=== PATIENT | female | born 1960 | race Caucasian/White ===

== ENCOUNTER 2017-12-08 11:23 | Inpatient (IN) | payer MEDICAID ==
[~2017-12-08] VITALS: Ht 152.4 cm; Wt 49.9 kg
--- NOTE | ~2017-12-08 | CN ---
PATIENT NAME:PAVEL GREER MEDICAL RECORD: [id number] : 56 LOCATION:[facility] ADMIT DATE: 12/08/17 ACCOUNT: [id number] CONSULTING PHYSICIAN: MOLLY BALLARD MD REFERRING PHYSICIAN: FIONA PRICE MD DATE OF CONSULTATION: 12/09/2017 CONSULT REQUESTING PHYSICIAN: Fiona Price MD REASON FOR CONSULTATION: Pneumonia, acute exacerbation of chronic obstructive pulmonary disease. HISTORY OF PRESENT ILLNESS: Ms. Greer is a 57-year-old female who is sick for the last 4-5 days. She was coughing. She was wheezing. She has shortness of breath with mild exertion. She has fever and chills. The patient came into the ER yesterday and admitted for pneumonia, COPD exacerbation. REVIEW OF SYSTEMS: Mainly in the history of present illness. PAST MEDICAL HISTORY: 1. COPD. 2. Gastroesophageal reflux disease. PAST SURGICAL HISTORY: Hysterectomy. ALLERGIES: No known drug allergy. MEDICATIONS: iHydroRun is reviewed. PERSONAL AND SOCIAL HISTORY: The patient is a current everyday smoker, 2 packs a day. She is a nondrinker. FAMILY HISTORY: Noncontributory. PHYSICAL EXAMINATION: GENERAL: Now, the patient is lying comfortably in bed. She is not in acute distress. VITAL SIGNS: The blood pressure is 136/62, pulse is 118, respiration 20, temperature 98.2, and SpO2 is 92% on 2 liters nasal cannula. HEENT: Conjunctivae are pink. Sclerae are not icteric. NECK: Supple, no JVD. CHEST: The chest excursion is minimal on both prolonged expiration with wheezing. HEART: Rhythm regular, normal sound, no murmur. ABDOMEN: Soft, bowel sounds present. No hepatosplenomegaly. RECTAL: Deferred. EXTREMITIES: No cyanosis, no clubbing, no pedal edema. SKIN: Warm, normal turgor. CENTRAL NERVOUS SYSTEM: The patient is awake and alert. There is no obvious cranial nerve abnormality. The gait was not tested. CHEST RADIOGRAPH: There is infiltrate in the right lower lobe compared to the chest radiograph on the and is a bit improving. LABORATORY DATA: CBC: WBC 10.4, hemoglobin 12.6, hematocrit 38.3, the platelet CONSULT REPORT [id number] PAVEL GREER count is 137. Chemistry: Sodium 139, potassium 3.2, BUN 22, creatinine was 0.9. ABG: The pH is 7.39, pCO2 of 41.8, the pO2 of 76, bicarbonate is 25.7. IMPRESSION: 1. Acute hypoxic respiratory failure. 2. Acute exacerbation of chronic obstructive pulmonary disease. 3. Pneumonia, right lower lobe, consistent with a community-acquired pneumonia. 4. Tobacco dependence syndrome. 5. Hypokalemia. 6. Gastroesophageal reflux disease. RECOMMENDATION: 1. Continue supplemental oxygen. 2. Albuterol and ipratropium nebulizer. Start Brovana, budesonide nebulizer, methylprednisolone IV, Singulair 10 mg a day, Mucinex DM. Follow up labs and chest radiograph. Check alpha 1 level. GERD precaution given. The patient was counseled to quit smoking. Dr. Price, thank you for involving me in the care of Ms. Greer. TRANSINT:[id number] Voice Confirmation ID: [id number] DOCUMENT ID: [id number] MOLLY BALLARD MD at 1806 CC: FIONA PRICE MD [id number] DICTATION DATE: 12/09/17 1523 ENVIRONMENTAL FIELD TEAM MEMBER: 12/09/17 1555 [facility] IN 12/12/17 [id number] [place] [address]
[2017-12-08 12:12] LABS: BASOPHILS 0.2 % (0-2); EOSINOPHILS 0 % (0-7); HEMATOCRIT 38.3 % (36.0-48.0); HEMOGLOBIN 12.6 g/dL (12-16); IMMATURE GRANULOCYTES 0.2 % (0-5); MCH 29.9 pg (26.0-34.0); MCHC 32.9 g/dL (31.0-37.0); MEAN PLATELET VOLUME 11.6 fL (7.4-10.4); MONOCYTES 6.3 % (2-11); NEUTROPHILS 80.3 % (40-80); RBC 4.21 10x6/uL (4.00-5.40); RDW 13.9 % (11.5-14.5); WBC 10.4 10x3/uL (4.8-10.8)
[2017-12-08 12:16] LABS: PLATELET COUNT 137 10x3/uL (130-400)
[2017-12-08 12:20] LABS: PROTIME 12.8 SECONDS (11.6-15.0)
[2017-12-08 12:21] LABS: APTT 29.6 SECONDS (22.8-39.4)
[2017-12-08 12:22] LABS: D-DIMER-QUANTITATIVE 0.59 ug/mLFEU (0.20-0.54)
[2017-12-08 12:27] LABS: ALBUMIN 3.1 g/dL (3.4-5.0); ALKALINE PHOSPHATASE 55 U/L (46-116); ALT (SGPT) 18 U/L (10-68); BILIRUBIN - TOTAL 0.21 mg/dL (0.2-1.3); CALC OSMOLALITY 281 mosm/kg (275-300); CALCIUM 8.4 mg/dL (8.5-10.1); CARBON DIOXIDE 26.5 mmol/L (21.0-32.0); CHLORIDE - SERUM 100 mmol/L (98-107); CREATININE - SERUM 0.9 mg/dL (0.6-1.3); GLUCOSE 113 mg/dL (74-106); POTASSIUM - SERUM 3.2 mmol/L (3.5-5.1); PROTEIN - SERUM 6.5 g/dL (6.4-8.2); SODIUM 139 mmol/L (136-145); UREA NITROGEN 22 mg/dL (7-18); eGFR NON AFRICAN AMERICAN 68 mL/min (90-120)
[2017-12-08 12:39] LABS: CKMB 0.3 U/L (0.0-3.6); CREATINE KINASE 63 UL (21-215)
[2017-12-08 12:41] LABS: TROPONIN-I < 0.017 ng/mL (0.000-0.060)
[2017-12-08 22:17] VITALS: BP 111/59
[2017-12-08] MEDS ORDERED: BACLOFEN10 MG PO (22:41)
[2017-12-08] MEDS ORDERED: IBUPROFEN800 MG PO (22:42)
[2017-12-08] MEDS ORDERED: PROAIR HFA8.5 GM INH ×2 (22:43→22:44)
[2017-12-08] MEDS ORDERED: ADVAIR 250/501 DISK INH (22:44)
[2017-12-08] MEDS ORDERED: IPRAT-ALBUT 0.5-3 ML UPD (22:45)
[2017-12-08] MEDS ORDERED: BUSPAR 15 MG TA15 MG PO (22:46)
[2017-12-08] MEDS ORDERED: NEURONTIN600 MG PO (22:47)
[2017-12-08] MEDS ORDERED: FUROSEMIDE20 MG PO (22:47)
[2017-12-08] MEDS ORDERED: TYLENOL W/CODEI1 TAB PO (22:49)
[2017-12-09 00:08] VITALS: BP 111/59; BMI 21.5
[2017-12-09 03:56] VITALS: BP 131/61
[2017-12-09 06:17] LABS: BASOPHILS 0 % (0-2); EOSINOPHILS 0 % (0-7); HEMATOCRIT 35.3 % (36.0-48.0); HEMOGLOBIN 11.5 g/dL (12-16); IMMATURE GRANULOCYTES 0.1 % (0-5); LYMPHOCYTES 9.3 % (15-50); MCH 29.6 pg (26.0-34.0); MCHC 32.6 g/dL (31.0-37.0); MCV 90.7 fL (80.0-100.0); MEAN PLATELET VOLUME 11.6 fL (7.4-10.4); MONOCYTES 2.7 % (2-11); NEUTROPHILS 87.9 % (40-80); PLATELET COUNT 145 10x3/uL (130-400); RBC 3.89 10x6/uL (4.00-5.40); RDW 13.9 % (11.5-14.5)
[2017-12-09 06:36] LABS: WBC 7.1 10x3/uL (4.8-10.8)
[2017-12-09 07:01] LABS: ALBUMIN 2.6 g/dL (3.4-5.0); ALKALINE PHOSPHATASE 51 U/L (46-116); ALT (SGPT) 17 U/L (10-68); CALC OSMOLALITY 295 mosm/kg (275-300); CALCIUM 8.4 mg/dL (8.5-10.1); CARBON DIOXIDE 23.8 mmol/L (21.0-32.0); CHLORIDE - SERUM 106 mmol/L (98-107); CREATININE - SERUM 0.8 mg/dL (0.6-1.3); POTASSIUM - SERUM 3.1 mmol/L (3.5-5.1); SODIUM 142 mmol/L (136-145); UREA NITROGEN 27 mg/dL (7-18); eGFR NON AFRICAN AMERICAN 78 mL/min (90-120)
[2017-12-09 07:12] LABS: GLUCOSE 244 mg/dL (74-106)
[2017-12-09 10:03] VITALS: BP 133/66
[2017-12-09 13:35] VITALS: BP 136/62
[2017-12-09 14:18] VITALS: Ht 152.4 cm; Wt 49.9 kg
[2017-12-09 16:54] VITALS: BP 137/57
[2017-12-09 21:38] VITALS: BP 159/67
[2017-12-10 03:50] VITALS: BP 147/71
[2017-12-10 05:44] LABS: BASOPHILS 0.1 % (0-2); EOSINOPHILS 0 % (0-7); IMMATURE GRANULOCYTES 0.3 % (0-5); LYMPHOCYTES 9.1 % (15-50); MCH 29.6 pg (26.0-34.0); MCHC 32.4 g/dL (31.0-37.0); MCV 91.4 fL (80.0-100.0); MEAN PLATELET VOLUME 11.8 fL (7.4-10.4); MONOCYTES 4.4 % (2-11); NEUTROPHILS 86.1 % (40-80); PLATELET COUNT 168 10x3/uL (130-400); RBC 3.72 10x6/uL (4.00-5.40); RDW 13.8 % (11.5-14.5)
[2017-12-10 06:00] LABS: WBC 12.5 10x3/uL (4.8-10.8)
[2017-12-10 06:05] LABS: ALBUMIN 2.7 g/dL (3.4-5.0); ALKALINE PHOSPHATASE 50 U/L (46-116); ALT (SGPT) 18 U/L (10-68); CALC OSMOLALITY 294 mosm/kg (275-300); CALCIUM 8.3 mg/dL (8.5-10.1); CARBON DIOXIDE 26.6 mmol/L (21.0-32.0); CHLORIDE - SERUM 108 mmol/L (98-107); CREATININE - SERUM 0.7 mg/dL (0.6-1.3); POTASSIUM - SERUM 3.3 mmol/L (3.5-5.1); PROTEIN - SERUM 5.9 g/dL (6.4-8.2); SODIUM 144 mmol/L (136-145); UREA NITROGEN 24 mg/dL (7-18); eGFR NON AFRICAN AMERICAN > 90 mL/min (90-120)
[2017-12-10 06:20] LABS: GLUCOSE 178 mg/dL (74-106)
[2017-12-10 08:30] VITALS: BP 142/61
[2017-12-10 12:50] VITALS: BP 161/69
[2017-12-10 15:52] VITALS: BP 162/82
[2017-12-10 20:00] VITALS: BP 167/70
[2017-12-11] VITALS: BP 170/70
[2017-12-11 04:00] VITALS: BP 170/76
[2017-12-11 05:25] LABS: ALBUMIN 2.8 g/dL (3.4-5.0); ALKALINE PHOSPHATASE 46 U/L (46-116); BILIRUBIN - TOTAL 0.22 mg/dL (0.2-1.3); CALC OSMOLALITY 294 mosm/kg (275-300); CALCIUM 8.8 mg/dL (8.5-10.1); CARBON DIOXIDE 28.7 mmol/L (21.0-32.0); CHLORIDE - SERUM 106 mmol/L (98-107); CREATININE - SERUM 0.7 mg/dL (0.6-1.3); GLUCOSE 141 mg/dL (74-106); POTASSIUM - SERUM 3.6 mmol/L (3.5-5.1); PROTEIN - SERUM 6.2 g/dL (6.4-8.2); SODIUM 145 mmol/L (136-145); UREA NITROGEN 24 mg/dL (7-18); eGFR NON AFRICAN AMERICAN > 90 mL/min (90-120)
[2017-12-11 05:27] LABS: ALT (SGPT) 23 U/L (10-68)
[2017-12-11 05:35] LABS: BASOPHILS 0.3 % (0-2); EOSINOPHILS 0.1 % (0-7); HEMATOCRIT 34.8 % (36.0-48.0); HEMOGLOBIN 11.4 g/dL (12-16); IMMATURE GRANULOCYTES 0.8 % (0-5); LYMPHOCYTES 15.7 % (15-50); MCH 30.1 pg (26.0-34.0); MCHC 32.8 g/dL (31.0-37.0); MCV 91.8 fL (80.0-100.0); MEAN PLATELET VOLUME 11.4 fL (7.4-10.4); MONOCYTES 4.9 % (2-11); NEUTROPHILS 78.2 % (40-80); RBC 3.79 10x6/uL (4.00-5.40); RDW 13.9 % (11.5-14.5); WBC 10.3 10x3/uL (4.8-10.8)
[2017-12-11 05:46] LABS: PLATELET COUNT 203 10x3/uL (130-400)
[2017-12-11 11:47] VITALS: BP 169/74
[2017-12-11 15:46] VITALS: BP 180/80
[2017-12-11 20:00] VITALS: BP 166/71
[2017-12-12] VITALS: BP 166/81
[2017-12-12 04:00] VITALS: BP 173/78
[2017-12-12 06:05] LABS: BASOPHILS 0.2 % (0-2); EOSINOPHILS 0 % (0-7); HEMATOCRIT 36.9 % (36.0-48.0); IMMATURE GRANULOCYTES 2.2 % (0-5); LYMPHOCYTES 21.6 % (15-50); MCH 29.3 pg (26.0-34.0); MCHC 32.5 g/dL (31.0-37.0); MCV 90.2 fL (80.0-100.0); MEAN PLATELET VOLUME 11.7 fL (7.4-10.4); MONOCYTES 9.1 % (2-11); NEUTROPHILS 66.9 % (40-80); PLATELET COUNT 223 10x3/uL (130-400); RBC 4.09 10x6/uL (4.00-5.40); RDW 13.6 % (11.5-14.5)
[2017-12-12 06:07] LABS: WBC 6.5 10x3/uL (4.8-10.8)
[2017-12-12 07:21] LABS: ALBUMIN 2.9 g/dL (3.4-5.0); ALKALINE PHOSPHATASE 48 U/L (46-116); BILIRUBIN - TOTAL 0.18 mg/dL (0.2-1.3); CALC OSMOLALITY 292 mosm/kg (275-300); CARBON DIOXIDE 29.7 mmol/L (21.0-32.0); CHLORIDE - SERUM 102 mmol/L (98-107); CREATININE - SERUM 0.8 mg/dL (0.6-1.3); GLUCOSE 147 mg/dL (74-106); POTASSIUM - SERUM 3.4 mmol/L (3.5-5.1); PROTEIN - SERUM 6.6 g/dL (6.4-8.2); SODIUM 144 mmol/L (136-145); UREA NITROGEN 20 mg/dL (7-18); eGFR NON AFRICAN AMERICAN 78 mL/min (90-120)
[2017-12-12 07:22] LABS: ALT (SGPT) 36 U/L (10-68)
[2017-12-12 09:04] VITALS: BP 158/87
[2017-12-12] MEDS ORDERED: LEXAPRO20 MG PO (12:31)
[2017-12-12] MEDS ORDERED: VIBRAMYCIN 100100 MG PO (12:33)
[2017-12-12] MEDS ORDERED: PREDNISONE20 MG PO (12:33)
[2017-12-12 16:58] VITALS: BP 175/84
== END 2017-12-12 20:40 | disposition home or self-care (01) | DRG 193 ==
LOC: D.ER 11:23 → D.MS 13:46 → D.EDHOLD 13:46 → D.MS 19:02
PROVIDERS: Family Medicine
DX: J18.9 Pneumonia, unspecified organism (principal); J96.01 Acute respiratory failure with hypoxia; J44.0 Chronic obstructive pulmonary disease with (acute) lower respiratory infection; N17.9 Acute kidney failure, unspecified; J44.1 Chronic obstructive pulmonary disease with (acute) exacerbation; F17.200 Nicotine dependence, unspecified, uncomplicated; E87.6 Hypokalemia; K21.9 Gastro-esophageal reflux disease without esophagitis

== ENCOUNTER → 2018-09-21 10:40 | Outpatient (CLI) | payer MEDICAID ==
[2017-12-09 14:18] VITALS: BMI 21.4
[~2018-09-21 10:40] MED LIST: ADVAIR 250/501 DISK INH; BACLOFEN10 MG PO; BUSPAR 15 MG TA15 MG PO; FUROSEMIDE20 MG PO; IBUPROFEN800 MG PO; IPRAT-ALBUT 0.5-3 ML UPD; LEXAPRO20 MG PO; NEURONTIN600 MG PO; PREDNISONE20 MG PO; PROAIR HFA8.5 GM INH; TYLENOL W/CODEI1 TAB PO; VIBRAMYCIN 100100 MG PO
[2018-09-21 13:40] LABS: BASOPHILS 0.8 % (0-2); EOSINOPHILS 2.2 % (0-7); HEMATOCRIT 41.2 % (36.0-48.0); HEMOGLOBIN 13.3 g/dL (12-16); IMMATURE GRANULOCYTES 0.1 % (0-5); LYMPHOCYTES 27.5 % (15-50); MCH 29.3 pg (26.0-34.0); MCHC 32.3 g/dL (31.0-37.0); MCV 90.7 fL (80.0-100.0); MEAN PLATELET VOLUME 11.8 fL (7.4-10.4); MONOCYTES 12.2 % (2-11); NEUTROPHILS 57.2 % (40-80); PLATELET COUNT 229 10x3/uL (130-400); RBC 4.54 10x6/uL (4.00-5.40); RDW 13.7 % (11.5-14.5); WBC 7.9 10x3/uL (4.8-10.8)
== END | disposition home or self-care (01) ==
LOC: D.RT 10:40
PROVIDERS: ATTEND Internal Medicine Pulmonary Disease
DX: J44.9 Chronic obstructive pulmonary disease, unspecified (principal)

== ENCOUNTER 2019-07-04 07:10 | Day surgery (SDC) | payer MEDICAID ==
[~2019-07-04] VITALS: Ht 154.9 cm; Wt 49.1 kg
--- NOTE | ~2019-07-04 | OP ---
PATIENT NAME: PAVEL GALLAGHER MEDICAL RECORD: [id number] :56 LOCATION:D[facility] ADMISSION DATE: SURGEON: ROBB PARTIDA DO DATE OF OPERATION: 07/04/2019 PROCEDURE: EGD with biopsies and balloon dilation. INDICATIONS FOR PROCEDURE: Dysphagia and abnormal weight loss. SCOPE: Olympus video gastroscope. MEDICATIONS: Propofol 110 mg IV per anesthesia. ESTIMATED BLOOD LOSS: Minimal. COMPLICATIONS: None. FINDINGS: Informed consent was given. The patient was made comfortable with the above medication. After reaching an adequate level of sedation by slow IV push, the patient was placed on her left side. The endoscope was advanced under direct visualization through the mouth to the second portion of the duodenum with ease. In the esophagus, there was evidence of tereza in the mid and distal esophagus. Severity was mild. In the distal third of the esophagus and at the GE junction, there was some stenosis noted. A CRE dilating balloon was used to dilate the site up to 20 mm maximum diameter successfully. At the GE junction, there was evidence of LA class A reflux-induced esophagitis. The endoscope was advanced beyond the GE junction in the stomach and retroflexed to view the cardia and fundus, which appeared normal. The body of the stomach appeared normal. As the endoscope reached the antrum and prepyloric regions, there was some erythema and granularity consistent with mild gastritis. Random cold forceps biopsies were taken to submit for histopathology and to rule out the presence of H. pylori. The endoscope was advanced beyond the pylorus in the duodenum, which appeared normal to the second portion. The endoscope was withdrawn from the patient. The patient tolerated the procedure well, and there were no complications. IMPRESSION: 1. Candidal esophagitis. 2. Esophageal stenosis status post dilation to 20 mm maximum diameter. 3. LA class A reflux-induced esophagitis. 4. Mild gastritis of the antrum. PLAN AND RECOMMENDATIONS: 1. Discharge home when recovery parameters are met. 2. Follow up biopsy specimen results. 3. GERD diet and reflux precautions. 4. Omeprazole 40 mg daily times 60 days, then return to as needed famotidine use. 5. Follow up in GI clinic in 2 months. 6. If dysphagia persist, consider barium esophagram versus modified barium swallow pending symptoms at the time of followup. TRANSINT:[id number] Voice Confirmation ID: [id number] DOCUMENT ID: [id number] OPERATIVE REPORT [id number] PAVEL GALLAGHER NATHAN A DO CC: [id number] DICTATION DATE: 07/04/19904 W[employer] DESIGN ENGINEER: 07/04/19 1156 [facility] 07/04/19 [id number] [place] [id number]
[2019-07-04 07:40] LABS: HEMATOCRIT 38.1 % (36.0-48.0); HEMOGLOBIN 12.4 g/dL (12-16); MCH 30.2 pg (26.0-34.0); MCHC 32.5 g/dL (31.0-37.0); MCV 92.7 fL (80.0-100.0); MEAN PLATELET VOLUME 10.2 fL (7.4-10.4); RBC 4.11 10x6/uL (4.00-5.40); RDW 13.7 % (11.5-14.5); WBC 9.3 10x3/uL (4.8-10.8)
[2019-07-04 08:00] VITALS: BP 125/62; Ht 154.9 cm; Wt 49.1 kg
--- NOTE | 2019-07-04 10:30 | NUR ---
0937 IV DC'D. CATHETER TIP INTACT. NO BLEEDING AT SITE. BANDAID APPLIED.
== END 2019-07-04 10:04 | disposition home or self-care (01) ==
LOC: D.OPS 07:10
PROVIDERS: Anesthesiology; ATTEND Internal Medicine Gastroenterology
DX: R13.10 Dysphagia, unspecified (principal); R63.4 Abnormal weight loss; Z72.0 Tobacco use

== ENCOUNTER 2020-01-05 14:39 | Inpatient (IN) | payer MEDICAID ==
[~2020-01-05] VITALS: Ht 154.9 cm; Wt 47.7 kg
[2020-01-05 15:19] LABS: HEMOGLOBIN 13.5 g/dL (12-16); MCHC 32.9 g/dL (31.0-37.0); MEAN PLATELET VOLUME 11.5 fL (7.4-10.4); PLATELET COUNT 227 10x3/uL (130-400); RBC 4.66 10x6/uL (4.00-5.40); RDW 16.2 % (11.5-14.5); WBC 21.5 10x3/uL (4.8-10.8)
[2020-01-05 15:51] VITALS: BP 118/73
[2020-01-05 15:56] LABS: LYMPHOCYTES 8 % (15-50); MONOCYTES 6 % (2-11); NEUTROPHILS 80 % (40-80); PLATELET ESTIMATE NORMAL
[2020-01-05 16:09] LABS: BILIRUBIN NEGATIVE (NEGATIVE); GLUCOSE NEGATIVE (NEGATIVE); KETONE NEGATIVE (NEGATIVE); NITRITE NEGATIVE (NEGATIVE); UROBILINOGEN NORMAL (NORMAL)
[2020-01-05 16:11] LABS: BACTERIA MANY /hpf (NEGATIVE); EPITHELIAL CELLS 0-5 /hpf (0-5); RED CELLS - URINE 0-5 /hpf (0-5); WHITE CELLS - URINE >50 /hpf (NEGATIVE)
[2020-01-05 16:11] LABS: ANION GAP 11.8 mmol/L (8-16); CALCIUM 7.9 mg/dL (8.5-10.1); CARBON DIOXIDE 26.6 mmol/L (21.0-32.0); CREATININE - SERUM 1.1 mg/dL (0.6-1.3); POTASSIUM - SERUM 3.4 mmol/L (3.5-5.1)
[2020-01-05 16:34] LABS: ALBUMIN 2.6 g/dL (3.4-5.0); BILIRUBIN - TOTAL 2.66 mg/dL (0.2-1.3); PROTEIN - SERUM 6.2 g/dL (6.4-8.2)
[2020-01-05 16:47] LABS: C-REACTIVE PROTEIN 34.9 mg/dL (0.0-0.9)
--- NOTE | 2020-01-05 19:30 | NUR ---
PT LYING IN BED, MOANING AND RESTLESS. RESPIRATIONS 26/MIN. HR 120S. PT WILL NOT OPEN EYES BUT ANSWERS MOST YES OR NO QUESTIONS ONLY. STATED SHE WAS IN PAIN, GAVE MORPHINE ORDERED. PT IMMEDIATELY RELAXED. CALLED [facility]P WHO CAME AND GAVE BREATHING TRX. WILL CTM
[2020-01-05 20:00] VITALS: BP 186/89
--- NOTE | 2020-01-05 22:30 | NUR ---
PAGED DR ESTRADA ABOUT LACTIC 2.6
--- NOTE | 2020-01-05 23:30 | NUR ---
PAGED DR ESTRADA AGAIN
--- NOTE | 2020-01-05 23:40 | NUR ---
ORDERS RECIEVED FOR 500ML BOLUS NS, INCREASE NS TO 125/HR, AND REDRAW LACTIC WITH AM LAB. GAVE BOLUS ORDERED AND INCREASED NS TO 125
[2020-01-06] VITALS: BP 101/60
--- NOTE | 2020-01-06 01:00 | NUR ---
PT WOKEN UP AND IS ABLE TO ANSWER MORE QUESTIONS NOW. STATES SHE FEELS MUCH BETTER. DRINKING WATER AND SITTING ON SIDE OF BED. DENIES NEEDS. CL IN REACH, WILL CTM
[2020-01-06 02:05] VITALS: Ht 154.9 cm; Wt 47.7 kg
[2020-01-06] MEDS ORDERED: SYMBICORT 16010.2 GM INH (02:19)
[2020-01-06] MEDS ORDERED: ZANAFLEX4 MG PO (02:20)
--- NOTE | 2020-01-06 03:30 | NUR ---
PROVIDED PT WITH INCENTIVE SPIROMETER, EDUCATED ABOUT USE, PT DEMONSTRATED HOW TO PROPERLY USE. COULD ONLY REACH 1000. ENCOURAGED TO USE WHILE AWAKE, VERBALIZED UNDERSTANDING. ASSIST PT TO BATHROOM. PT WEAK AND URINE VERY DARK. ONCE BACK IN BED, SCDS PLACED ON PT. DENIES NEEDS AT THIS TIME. CL IN REACH, WILL CTM
[2020-01-06 04:00] VITALS: BP 111/61
[2020-01-06 06:11] LABS: BASOPHILS 0.1 % (0-2); EOSINOPHILS 0 % (0-7); HEMATOCRIT 35.1 % (36.0-48.0); HEMOGLOBIN 11.5 g/dL (12-16); IMMATURE GRANULOCYTES 0.3 % (0-5); MCH 28.7 pg (26.0-34.0); MCHC 32.8 g/dL (31.0-37.0); MCV 87.5 fL (80.0-100.0); MEAN PLATELET VOLUME 12.5 fL (7.4-10.4); MONOCYTES 8.8 % (2-11); NEUTROPHILS 82.8 % (40-80); PLATELET COUNT 202 10x3/uL (130-400); RBC 4.01 10x6/uL (4.00-5.40); RDW 16.2 % (11.5-14.5); WBC 16.3 10x3/uL (4.8-10.8)
[2020-01-06 06:25] LABS: ANION GAP 10.2 mmol/L (8-16); CALCIUM 7.4 mg/dL (8.5-10.1); CARBON DIOXIDE 25.9 mmol/L (21.0-32.0); POTASSIUM - SERUM 3.1 mmol/L (3.5-5.1)
[2020-01-06 09:41] VITALS: BP 125/65
[2020-01-06 13:45] VITALS: BP 106/57
[2020-01-06 16:00] VITALS: BP 135/63
--- NOTE | 2020-01-06 19:30 | NUR ---
PT SITTING UP IN BED WITHOUT DISTRESS, AOX4. IV LEFT FA INFUSING NS @ 125. STATES PAIN IS BETTER AFTER PAIN MED EARLIER. PROVIDED ICE WATER. DENIES OTHER NEEDS. CL IN REACH, WILL CTM
[2020-01-06 20:00] VITALS: BP 140/64
[2020-01-07] VITALS: BP 138/80
[2020-01-07 04:00] VITALS: BP 163/71
[2020-01-07 04:48] LABS: BASOPHILS 0.2 % (0-2); EOSINOPHILS 0.9 % (0-7); HEMATOCRIT 32.6 % (36.0-48.0); HEMOGLOBIN 10.6 g/dL (12-16); IMMATURE GRANULOCYTES 0.3 % (0-5); LYMPHOCYTES 16.3 % (15-50); MCH 28.5 pg (26.0-34.0); MCHC 32.5 g/dL (31.0-37.0); MCV 87.6 fL (80.0-100.0); MEAN PLATELET VOLUME 11.8 fL (7.4-10.4); MONOCYTES 12.5 % (2-11); NEUTROPHILS 69.8 % (40-80); PLATELET COUNT 192 10x3/uL (130-400); RBC 3.72 10x6/uL (4.00-5.40); RDW 16.2 % (11.5-14.5)
[2020-01-07 05:06] LABS: ANION GAP 9.1 mmol/L (8-16); CALCIUM 7.3 mg/dL (8.5-10.1); CARBON DIOXIDE 25.7 mmol/L (21.0-32.0); CREATININE - SERUM 0.9 mg/dL (0.6-1.3)
[2020-01-07 05:12] LABS: POTASSIUM - SERUM 2.8 mmol/L (3.5-5.1)
--- NOTE | 2020-01-07 06:00 | NUR ---
PAGED DR DAVIDSON FOR CRITICAL K+ 2.8. RECIEVED ORDERS FOR K+ 20MEQ Q3H X3 DOSES.
--- NOTE | 2020-01-07 06:30 | NUR ---
PT WOKE UP NOT FEELING WELL, ASSISTED PT TO BATHROOM AND BACK TO BED. PT BECAME SOB, EXP WHEEZES, SITTING IN TRIPOD POSITION. CALLED RESP. PT O2 SAT 88%. PLACED PT ON 3L/NC TO GET O2 93%. RESP TO BEDSIDE FOR BREATHING TRX AT THIS TIME
[2020-01-07 08:45] VITALS: BP 167/74
--- NOTE | 2020-01-07 13:02 | NUR ---
PT A&O. SITTING UP IN BED. PT DENIES PAIN. PIV IN LEFT FOREARM, PATENT, NON-TENDER. PT STATES THAT SHE IS FEELING BETTER WITH THE O2 NC. PT ABLE TO AMBULATE TO THE RESTROOM WITHOUT ASSIST, STATES WEAKNESS IN LOWER EXTREMITIES. CHECKED ELECTROLYTE PROTOCOL, K+ AT 2.8, ADMINISTERED K-DUR PER ORDER. BED LOW, RAILS X2. PT DENIES FURTHER NEEDS. CL IN REACH. WILL CONTINUE TO MONITOR.
[2020-01-07 13:15] VITALS: BP 163/73
[2020-01-07 17:46] VITALS: BP 174/82
--- NOTE | 2020-01-07 19:50 | NUR ---
AMBULATED TO BR TO VOID. GEN WEAKNESS NOTED. ALERT AND ORIENTED X4. TELEMETRY SHOWS SR WITH RATE OF 91. O2 @ 3L/NC. NONPROD COUGH NOTED. C/O BURNING UPON URINATION. NS @ 125 ML/HR INFUSING IN LT FOREARM. NO DISTRESS. CL IN REACH.
[2020-01-07 20:00] VITALS: BP 179/79
--- NOTE | 2020-01-07 23:45 | NUR ---
MEDICATED WITH TYLENOL FOR C/O PAIN. CL IN REACH.
[2020-01-08] VITALS: BP 152/77
[2020-01-08 04:00] VITALS: BP 161/72
--- NOTE | 2020-01-08 04:12 | NUR ---
RESTED WELL SO FAR THIS SHIFT. CL IN REACH. NO DISTRESS.
[2020-01-08 05:54] LABS: BASOPHILS 0.2 % (0-2); EOSINOPHILS 2.5 % (0-7); HEMATOCRIT 32.5 % (36.0-48.0); HEMOGLOBIN 10.3 g/dL (12-16); IMMATURE GRANULOCYTES 0.4 % (0-5); LYMPHOCYTES 17.8 % (15-50); MCH 28.2 pg (26.0-34.0); MCHC 31.7 g/dL (31.0-37.0); MEAN PLATELET VOLUME 11.1 fL (7.4-10.4); MONOCYTES 16.5 % (2-11); NEUTROPHILS 62.6 % (40-80); PLATELET COUNT 199 10x3/uL (130-400); RBC 3.65 10x6/uL (4.00-5.40); RDW 16.3 % (11.5-14.5)
[2020-01-08 06:07] LABS: CALC OSMOLALITY 278 mosm/kg (275-300); CALCIUM 7.3 mg/dL (8.5-10.1); CARBON DIOXIDE 25.6 mmol/L (21.0-32.0); CHLORIDE - SERUM 110 mmol/L (98-107); CREATININE - SERUM 0.8 mg/dL (0.6-1.3); GLUCOSE 89 mg/dL (74-106); POTASSIUM - SERUM 3.2 mmol/L (3.5-5.1); SODIUM 140 mmol/L (136-145); eGFR NON AFRICAN AMERICAN 77 mL/min (90-120)
[2020-01-08 06:20] LABS: UREA NITROGEN 14 mg/dL (7-18)
[2020-01-08 08:59] VITALS: BP 153/72
--- NOTE | 2020-01-08 10:30 | NUR ---
PT SITTING UP IN BED WATCHING TV. RESP EVEN AND UNLABORED. O2 @ 3L NC IN PLACE. DENIES PAIN AT THIS TIME. IV TO LEFT FOREARM WITH NS @ 125ML/HR INFUSING VIA PUMP. SITE WITHOUT REDNESS OR EDEMA. TELEMETRY IN PLACE. DENIES FURTHER NEEDS AT THIS TIME. CL WITHIN REACH. ENCOURAGED TO CALL WITH NEEDS. CONTINUE POC
[2020-01-08 12:10] VITALS: BP 167/74
[2020-01-08] MEDS ORDERED: LEVAQUIN750 MG PO (16:29)
[2020-01-08] MEDS ORDERED: K-DUR20 MEQ PO (16:30)
[2020-01-08 16:50] VITALS: BP 168/77
== END 2020-01-08 17:57 | disposition home or self-care (01) | DRG 872 ==
LOC: D.ER 14:39 → D.MS 17:18
PROVIDERS: Family Medicine; ADMIT Family Medicine; ATTEND Family Medicine
DX: A41.9 Sepsis, unspecified organism (principal); N39.0 Urinary tract infection, site not specified; J44.9 Chronic obstructive pulmonary disease, unspecified; F32.9 Major depressive disorder, single episode, unspecified; E87.6 Hypokalemia; B96.20 Unspecified Escherichia coli [E. coli] as the cause of diseases classified elsewhere

== ENCOUNTER 2020-04-10 11:32 | Outpatient (CLI) | payer MEDICAID ==
[~2020-04-10] VITALS: Ht 154.9 cm; Wt 41.8 kg
[~2020-04-10 11:32] MED LIST changes: +K-DUR20 MEQ PO; +LEVAQUIN750 MG PO; +SYMBICORT 16010.2 GM INH; +ZANAFLEX4 MG PO
[2020-04-10 12:12] VITALS: BP 126/75; Ht 154.9 cm; Wt 41.8 kg
--- NOTE | 2020-04-10 12:42 | NUR ---
1205 REQUESTED BEHAVIORAL HEALTH CONSULATION FOR PT WHO IS TEARFUL AND HAS RECENTLY HAD A LIFE SITUATION CHANGE. 1240 SECOND CALL SUBMITTED FOR [facility] FOR PT
--- NOTE | 2020-04-10 13:07 | NUR ---
DR. CARVAJAL NOTIFIED AND REVIEWED PT'S BEHAVIOR AND ASSESSMENT RESULTS. PT IS A LOW RISK PER DR. CARVAJAL. DR. CARVAJAL STATED TO RESOURCES AT TIME OF DISCHARGE. NO FURTHER ORDERS AT THIS TIME. RESOURCES REVIEWED WITH PT AND HE VERBALIZED UNDERDTANDING. PT DENIES SI OR ANY THOUGHTS OF SI. PT IS DEPRESSED DUE TO SITUATION AT THIS TIME. PT REPORTS " I WILL MAKE APPT WITH DR. SCHMIDT TO DISCUSS MY DEPRESSION." PT PROVIDED INFORMATION FOR OUTPATIENT COUNSELING.
== END 2020-04-10 13:05 | disposition home or self-care (01) ==
LOC: D.OPS 11:32
PROVIDERS: ATTEND Family Medicine
DX: M81.0 Age-related osteoporosis without current pathological fracture (principal)

== ENCOUNTER → 2020-11-26 07:46 | Outpatient (CLI) | payer MEDICAID ==
[2020-04-10 12:12] VITALS: BMI 17.4
== END | disposition home or self-care (01) ==
LOC: D.RAD
PROVIDERS: ATTEND Surgery
DX: Z01.812 Encounter for preprocedural laboratory examination (principal)